=== PATIENT | female | born 2000 | race Caucasian/White ===

== ENCOUNTER 2020-11-30 21:19 | Emergency (ER) | payer BC ==
[~2020-11-30] VITALS: Ht 167.6 cm; Wt 75.0 kg
[2020-11-30 21:27] VITALS: PULSE 83; TEMP 97.6
[2020-11-30 21:45] LABS: COLLECTION METHOD CLEAN CATCH
[2020-11-30 21:54] LABS: MUCOUS Present /lpf; PH 6 (5-8); SQUAMOUS EPITHELIAL 0-2 /hpf; URINE APPEARANCE Hazy; URINE BACTERIA Rare /hpf; URINE BILIRUBIN Negative (NEGATIVE); URINE BLOOD 2+ (NEGATIVE); URINE COLOR Yellow; URINE GLUCOSE Negative (NEGATIVE); URINE KETONE Negative (NEGATIVE); URINE LEUKOCYTE ESTERASE 2+ (NEGATIVE); URINE NITRATE Negative (NEGATIVE); URINE PROTEIN(semi-quant) 2+ (NEGATIVE); URINE RBC >50 /hpf
[2020-11-30] MEDS ORDERED: MACROBID 1100 MG/CAP PO (22:02)
[2020-11-30] MEDS ORDERED: [UNRECOGNIZED DRUG - OTHER] (22:18)
[2020-11-30 22:21] VITALS: BP 130/72
== END 2020-11-30 22:24 | disposition home or self-care (01) ==
LOC: COL.ER 21:19
PROVIDERS: Nurse Practitioner Primary Care
DX: N39.0 Urinary tract infection, site not specified (principal); Z32.02 Encounter for pregnancy test, result negative